=== PATIENT | female | born 1945 | race Caucasian/White ===

== ENCOUNTER 2022-09-02 10:26 | Emergency (ER) | payer MEDICARE ==
[2022-09-02] MEDS ORDERED: Nitrofurantoin Macrocrystal 50 MG Cap ONE (11:00)
[2022-09-02 11:09] LABS: APPEARANCE,URINE CLOUDY (CLEAR); COLOR,URINE ORANGE; RBC,URINE 50-75 /HPF; WBC CLUMPS,URINE MODERATE /HPF; WBC,URINE >100 /HPF
[2022-09-02 11:10] LABS: BACTERIA,URINE MANY /HPF; FINE GRANULAR CASTS,URINE OCCASIONAL /HPF; RENAL EPITHELIAL CELLS,URINE OCCASIONAL /HPF; WBC CASTS,URINE FEW /HPF
== END 2022-09-02 11:32 | disposition home or self-care (01) ==
LOC: LB.ED 10:26
DX: N39.0 Urinary tract infection, site not specified (principal); Z88.0 Allergy status to penicillin; Z88.2 Allergy status to sulfonamides
CPT/HCPCS: 81001; 99283; A9270-GY